=== PATIENT | female | born 1965 | race Caucasian/White ===

== ENCOUNTER 2016-08-03 07:02 | Emergency (ER) | payer OTHER ==
[~2016-08-03] VITALS: Wt 72.0 kg
[2016-08-03] MEDS ORDERED: KETOROLAC 15 MG INJ IV STA (07:17)
[2016-08-03] MEDS ORDERED: ONDANSETRON 4 MG INJ IV STA (07:17)
--- NOTE | 2016-08-03 07:20 | ERD ---
ER Documentation Chief Complaint Date/Time DATE: 08/03/16 TIME: 07:19 Chief Complaint R FLANK PAIN X 2 WEEKS HPI 51-year-old female who is obese has a history of surgical removal of kidney stones 2 years ago comes in with right flank pain that goes her right upper quadrant for 2 weeks. She describes as sharp, moderate, radiating from the right flank region to the right upper quadrant. She states that it is associated with nausea however no vomiting or fevers or chills. She denies chest pain or shortness of breath. ROS All systems reviewed and are negative except as per history of present illness. Medications Home Meds Active Scripts Tramadol HCl (Tramadol HCl) 50 Mg Tablet, 50 MG PO Q4 Y for PAIN, #20 TAB Prov:EDUARDO AYALA PA-C 08/03/16 Allergies Allergies: Coded Allergies: No Known Allergy (Unverified , 12/24/12) PMhx/Soc History of Surgery: Yes (appendectomy) Anesthesia Reaction: No Hx Neurological Disorder: No Hx Respiratory Disorders: No Hx Cardiac Disorders: No Hx Psychiatric Problems: No Hx Miscellaneous Medical Probl: No Hx Alcohol Use: No Hx Substance Use: No Hx Tobacco Use: No Physical Exam Vitals Vital Signs Date Time Temp Pulse Resp B/P Pulse Ox O2 Delivery O2 Flow Rate FiO2 08/03/16 07:04 99.1 83 20 159/81 99 Physical Exam General: Well-developed, well-nourished. The patient appears in no acute distress. HEENT: Head is normocephalic, atraumatic. No scleral icterus. Neck: Supple. Nontender. Lungs: Clear to auscultation. Normal air movement. Heart: Regular rate and rhythm. S1 and S2 are normal. No murmurs, gallops, or rubs. Abdomen: Soft, tender in the right upper quadrant, nondistended. Bowel sounds are normoactive. Extremities: No clubbing or cyanosis. Normal pulses. Moving extremities x 4. No weakness. Neurologic: Alert and oriented 3. No focal deficits. Skin: Normal turgor. No rash or lesions. Result Diagram: 08/03/16 0733 08/03/16732 Results 24 hrs Laboratory Tests Test 08/03/16 07:33 Alanine Aminotransferase (ALT/SGPT) 82IU/L Albumin 3.9g/dl Albumin/Globulin Ratio 1.05 Alkaline Phosphatase 85IU/L Anion Gap 20 Aspartate Amino Transf (AST/SGOT) 58IU/L Basophils # 0.010^3/ul Basophils % 0.4% Blood Urea Nitrogen 6mg/dl Calcium Level 8.8mg/dl Carbon Dioxide Level 24mmol/L Chloride Level 105mmol/L Creatinine 0.47mg/dl Direct Bilirubin 0.00mg/dl Eosinophils # 0.310^3/ul Eosinophils % 3.2% Globulin 3.70g/dl Glucose Level 168mg/dl Hematocrit 35.8% Hemoglobin 12.2g/dl Indirect Bilirubin 0.2mg/dl Lipase 104U/L Lymphocytes # 2.310^3/ul Lymphocytes % 29.1% Mean Corpuscular Hemoglobin 29.1pg Mean Corpuscular Hemoglobin Concent 34.0g/dl Mean Corpuscular Volume 85.6fl Mean Platelet Volume 8.4fl Monocytes # 0.510^3/ul Monocytes % 6.2% Neutrophils # 4.710^3/ul Neutrophils % 61.1% Nucleated Red Blood Cells # 0.010^3/ul Nucleated Red Blood Cells % 0.0/100WBC Platelet Count 32690^3/UL Potassium Level 3.9mmol/L Red Blood Count 4.1810^6/ul Red Cell Distribution Width 13.7% Sodium Level 145mmol/L Total Bilirubin 0.2mg/dl Total Protein 7.6g/dl Urine Bilirubin NEGATIVE Urine Clarity CLEAR Urine Color LT. YELLOW Urine Epithelial Cells OCCASIONAL Urine Glucose NEGATIVE% Urine Hemoglobin 2+ Urine Ketones NEGATIVE Urine Leukocyte Esterase NEGATIVE Urine Microscopic RBC 2-5/HPF Urine Microscopic WBC 0-2/HPF Urine Nitrite NEGATIVE Urine Specific [place] 1.025 Urine Total Protein TRACE Urine Urobilinogen 0.2 E.U./dL Urine pH 6.0 White Blood Count 7.810^3/ul Current Medications Medications (Trade) Dose Ordered Sig/Fina Route PRN Reason Start Time Stop Time Status Last Admin Dose Admin Ondansetron HCl (Zofran Inj) 4 mg ONCE STAT IV 08/03/16 07:17 08/03/16 07:19 DC 08/03/16 07:43 Ketorolac Tromethamine (Toradol) 15 mg ONCE STAT IV 08/03/16 07:17 08/03/16 07:19 DC 08/03/16 07:43 PROCEDURE: CT Abdomen and Pelvis without contrast. CLINICAL INDICATION: Right upper quadrant pain. TECHNIQUE: Routine tomographic images of the abdomen and pelvis were obtained from the domes of the diaphragm to the symphysis pubis. The patient was scanned withoutoral or intravenous contrast. Coronal and sagittal reformatted images were obtained from the axial source images. Images were reviewed on a high-resolution PACS workstation. The total exam CTDI equals 22.69 mGy and the total exam DLP equals 1239.26 mGy-cm. One or more of the following dose reduction techniques were used: Automated exposure control, adjustment of the mA and / or kV according to patient size, or use of iterative reconstruction technique. COMPARISON: CT abdomen and pelvis dated 12/24/2012 FINDINGS: The visualized portions of the lung bases demonstrate a 3 mm granuloma at the left lung base. Evaluation of the intra-abdominal solid organs is limited on this noncontrast examination. The liver appears normal in size. The liver parenchyma demonstrates diffuse hypoattenuation. There is no intra or extrahepatic biliary dilatation. The gallbladder is surgically absent. The spleen, pancreas, and adrenal glands are unremarkable. The kidneys are symmetric in size. No renal, ureteral, or bladder calculi are identified. No perinephric inflammatory changes are identified. The urinary bladder is grossly unremarkable. The bowel demonstrates normal course and caliber. There is no evidence of bowel obstruction. The appendix is not visualized. There is suture material along the medial margin of the cecum. No intraperitoneal free fluid, free air or abscess is identified. The uterus and adnexa are unremarkable. The aorta is normal in caliber. No retroperitoneal, mesenteric, or inguinal lymphadenopathy is identified. The osseous structures are unremarkable. No significant subcutaneous soft tissue abnormalities are seen. IMPRESSION: 1. Limited, noncontrast CT the abdomen and pelvis. No acute intra-abdominal abnormality is appreciated. 2. Interval postsurgical changes from cholecystectomy and interval resolution of pancreatitis when compared to the prior examination. 3. Status post appendectomy. 4. Hepatic steatosis. 5. 3 mm granuloma at the left lung base. RPTAT: HH .Deysi Granado MD, MD Date Time Electronically viewed and signed by .Deysi Granado MD, MD on 08/03/2016 08 :21 .G/ CC: EDUARDO AYALA PA-C Procedures/MDM ED course: Patient had a line established labs and urine were obtained she was given Toradol 30 mg IV and Zofran 4 mg IV. : 51-year-old female comes in right-sided abdominal pain, workup she was that she is status post cholecystectomy, it was done in 2012. There is no evidence of significant transaminitis or pancreatitis, and her ducts are within normal limits. Doubt choledocholithiasis at this time, or acute cholangitis. She has no fever this time, no Yang sign. She has been asked to follow-up outpatient with GI for reevaluation. Departure Diagnosis: Primary Impression: Abdominal pain Condition: Good EDUARDO AYALA PA-C Aug 03, 2016 07:20
[2016-08-03 07:53] LABS: ADD UMIC YES; URINE BILIRUBIN (Dip) NEGATIVE (NEGATIVE); URINE BLOOD (Dip) 2+ (NEGATIVE); URINE COLOR LT. YELLOW (YELLOW); URINE GLUCOSE (Dip) NEGATIVE (NEGATIVE); URINE KETONES (Dip) NEGATIVE (NEGATIVE); URINE LEUKOCYTE ESTERASE (Dip) NEGATIVE (NEGATIVE); URINE NITRITE (Dip) NEGATIVE (NEGATIVE); URINE TOTAL PROTEIN (Dip) TRACE (NEGATIVE); URINE UROBILINOGEN (Dip) 0.2 E.U./dL (0.1-1.0)
[2016-08-03 07:54] LABS: BASOPHILS % 0.4 % (0.0-2.0); EOSINOPHILS # 0.3 10^3/ul (0.0-0.5); EOSINOPHILS % 3.2 % (0.0-7.0); HEMATOCRIT 35.8 % (37.0-47.0); HEMOGLOBIN 12.2 g/dl (12.0-16.0); LYMPHOCYTES # 2.3 10^3/ul (0.8-2.9); LYMPHOCYTES % 29.1 % (15.0-51.0); MEAN CORPUSCULAR HEMOGLOBIN 29.1 pg (29.0-33.0); MEAN CORPUSCULAR VOLUME 85.6 fl (82.0-101.0); MEAN PLATELET VOLUME 8.4 fl (7.4-10.4); MONOCYTE # 0.5 10^3/ul (0.3-0.9); MONOCYTES % 6.2 % (0.0-11.0); NEUTROPHIL # 4.7 10^3/ul (1.6-7.5); NEUTROPHILS % 61.1 % (39.0-77.0); PLATELET COUNT 220 10^3/UL (140-440); RED BLOOD COUNT 4.18 10^6/ul (4.20-5.40); RED CELL DISTRIBUTION WIDTH 13.7 % (11.5-14.5); UNCORRECTED WBC 7.8 10^3/ul (4.8-10.8); WHITE BLOOD COUNT 7.8 10^3/ul (4.8-10.8)
[2016-08-03 07:57] LABS: CONDITION 1
[2016-08-03 07:59] LABS: ALBUMIN 3.9 g/dl (3.3-4.9)
[2016-08-03 08:00] LABS: POTASSIUM 3.9 mmol/L (3.5-5.1)
[2016-08-03 08:02] LABS: ALBUMIN/GLOBULIN RATIO 1.05; BILIRUBIN,INDIRECT 0.2 mg/dl (0-1.1); BILIRUBIN,TOTAL 0.2 mg/dl (0.2-1.3); CREATININE 0.47 mg/dl (0.44-1.00); TOTAL PROTEIN 7.6 g/dl (6.1-8.1)
[2016-08-03 08:03] LABS: CALCIUM 8.8 mg/dl (8.4-10.2)
--- NOTE | 2016-08-03 08:21 | RADRPT ---
PROCEDURE: CT Abdomen and Pelvis without contrast. CLINICAL INDICATION: Right upper quadrant pain. TECHNIQUE: Routine tomographic images of the abdomen and pelvis were obtained from the domes of th e diaphragm to the symphysis pubis. The patient was scanned withoutoral or intravenous contrast. C oronal and sagittal reformatted images were obtained from the axial source images. Images were revie wed on a high-resolution PACS workstation. The total exam CTDI equals 22.69 mGy and the total exam D LP equals 1239.26 mGy-cm. One or more of the following dose reduction techniques were used: Automa tenzin exposure control, adjustment of the mA and / or kV according to patient size, or use of iterativ e reconstruction technique. COMPARISON: CT abdomen and pelvis dated 12/24/2012 FINDINGS: The visualized portions of the lung bases demonstrate a 3 mm granuloma at the left lung base. Norma luation of the intra-abdominal solid organs is limited on this noncontrast examination. The liver a ppears normal in size. The liver parenchyma demonstrates diffuse hypoattenuation. There is no intra or extrahepatic biliary dilatation. The gallbladder is surgically absent. The spleen, pancreas, an d adrenal glands are unremarkable. The kidneys are symmetric in size. No renal, ureteral, or bladder calculi are identified. No perine phric inflammatory changes are identified. The urinary bladder is grossly unremarkable. The bowel demonstrates normal course and caliber. There is no evidence of bowel obstruction. The appendix is not visualized. There is suture material along the medial margin of the cecum. No intr aperitoneal free fluid, free air or abscess is identified. The uterus and adnexa are unremarkable. The aorta is normal in caliber. No retroperitoneal, mesenteric, or inguinal lymphadenopathy is iden tified. The osseous structures are unremarkable. No significant subcutaneous soft tissue abnormalities are seen. IMPRESSION: 1. Limited, noncontrast CT the abdomen and pelvis. No acute intra-abdominal abnormality is appreci ated. 2. Interval postsurgical changes from cholecystectomy and interval resolution of pancreatitis when compared to the prior examination. 3. Status post appendectomy. 4. Hepatic steatosis. 5. 3 mm granuloma at the left lung base. RPTAT: .Deysi Granado MD, Date Time Electronically viewed and signed by .Deysi Granado MD, MD on 08/03/2016 08:21 .G/
[2016-08-03] MEDS ORDERED: ULT50 PO (08:31)
[2016-08-03 08:55] VITALS: BP 145/74; PULSE 65; RESP 20; TEMP 98.2
== END 2016-08-03 08:55 | disposition home or self-care (01) ==
LOC: FTE 07:02
DX: R10.11 Right upper quadrant pain (principal); R11.0 Nausea
CPT/HCPCS: 36415; 74176; 80053; 81001; 83690; 85025; 96374; 96375; J1885; J2405; Z7502; 81003